=== PATIENT | male | born 1945 | race African-American/Black ===

== ENCOUNTER 2024-01-29 13:48 | Outpatient (CLI) | payer OTHER | END 2024-01-29 13:49 | disposition home or self-care (01) | LOC: CSHWCC 13:48 | PROVIDERS: ATTEND Nurse Practitioner Family | DX: L89.154 Pressure ulcer of sacral region, stage 4 (principal); E11.622 Type 2 diabetes mellitus with other skin ulcer; L98.499 Non-pressure chronic ulcer of skin of other sites with unspecified severity; C18.9 Malignant neoplasm of colon, unspecified; C61 Malignant neoplasm of prostate | CPT/HCPCS: 11042; 99213; G0463 ==

== ENCOUNTER 2024-02-07 14:37 | Outpatient (CLI) | payer OTHER | END 2024-02-07 14:38 | disposition home or self-care (01) | LOC: CSHWCC 14:37 | PROVIDERS: ATTEND Nurse Practitioner Family | DX: L89.154 Pressure ulcer of sacral region, stage 4 (principal); E11.622 Type 2 diabetes mellitus with other skin ulcer; L98.499 Non-pressure chronic ulcer of skin of other sites with unspecified severity; C18.9 Malignant neoplasm of colon, unspecified; C61 Malignant neoplasm of prostate | CPT/HCPCS: 11042; 97605 ==

== ENCOUNTER 2024-03-01 12:02 | Outpatient (CLI) | payer OTHER | END 2024-03-01 12:03 | disposition home or self-care (01) | LOC: CSHWCC 12:02 | PROVIDERS: ATTEND Nurse Practitioner Family | DX: L89.154 Pressure ulcer of sacral region, stage 4 (principal); E11.622 Type 2 diabetes mellitus with other skin ulcer; L98.499 Non-pressure chronic ulcer of skin of other sites with unspecified severity; C18.9 Malignant neoplasm of colon, unspecified; C61 Malignant neoplasm of prostate | CPT/HCPCS: 11042; 97605 ==

== ENCOUNTER 2024-03-15 13:55 | Outpatient (CLI) | payer OTHER | END 2024-03-15 13:56 | disposition home or self-care (01) | LOC: CSHWCC 13:55 | PROVIDERS: ATTEND Nurse Practitioner Family | DX: L89.154 Pressure ulcer of sacral region, stage 4 (principal); E11.622 Type 2 diabetes mellitus with other skin ulcer; L98.499 Non-pressure chronic ulcer of skin of other sites with unspecified severity; C18.9 Malignant neoplasm of colon, unspecified; C61 Malignant neoplasm of prostate | CPT/HCPCS: 11042; 99212; G0463 ==

== ENCOUNTER 2024-04-03 15:06 | Outpatient (CLI) | payer OTHER | END 2024-04-03 15:07 | disposition home or self-care (01) | LOC: CSHWCC 15:06 | PROVIDERS: ATTEND Nurse Practitioner Family | DX: L89.154 Pressure ulcer of sacral region, stage 4 (principal); E11.622 Type 2 diabetes mellitus with other skin ulcer; L98.499 Non-pressure chronic ulcer of skin of other sites with unspecified severity; C18.9 Malignant neoplasm of colon, unspecified; C61 Malignant neoplasm of prostate | CPT/HCPCS: 11042 ==

== ENCOUNTER 2024-10-16 15:15 | Outpatient (CLI) | payer OTHER | END 2024-10-16 15:16 | disposition home or self-care (01) | LOC: CSHWCC 15:15 | PROVIDERS: ATTEND Nurse Practitioner Family | DX: L89.154 Pressure ulcer of sacral region, stage 4 (principal); E11.622 Type 2 diabetes mellitus with other skin ulcer; L98.499 Non-pressure chronic ulcer of skin of other sites with unspecified severity; C18.9 Malignant neoplasm of colon, unspecified; C61 Malignant neoplasm of prostate | CPT/HCPCS: 97597; 97605 ==

== ENCOUNTER 2024-10-31 14:48 | Outpatient (CLI) | payer OTHER | END 2024-10-31 14:49 | disposition home or self-care (01) | LOC: CSHWCC 14:48 | PROVIDERS: ATTEND Nurse Practitioner Family | DX: L89.154 Pressure ulcer of sacral region, stage 4 (principal); E11.622 Type 2 diabetes mellitus with other skin ulcer; L98.499 Non-pressure chronic ulcer of skin of other sites with unspecified severity; C18.9 Malignant neoplasm of colon, unspecified; C61 Malignant neoplasm of prostate | CPT/HCPCS: 11042; 99213; G0463 ==

== ENCOUNTER 2024-11-08 15:00 | Outpatient (CLI) | payer OTHER | END 2024-11-08 15:01 | disposition home or self-care (01) | LOC: CSHWCC 15:00 | PROVIDERS: ATTEND Nurse Practitioner Family | DX: L89.154 Pressure ulcer of sacral region, stage 4 (principal); E11.622 Type 2 diabetes mellitus with other skin ulcer; L98.499 Non-pressure chronic ulcer of skin of other sites with unspecified severity; C61 Malignant neoplasm of prostate; C18.9 Malignant neoplasm of colon, unspecified ==

== ENCOUNTER 2024-11-19 14:29 | Outpatient (CLI) | payer OTHER | END 2024-11-19 14:30 | disposition home or self-care (01) | LOC: CSHWCC 14:29 | PROVIDERS: ATTEND Nurse Practitioner Family | DX: L89.154 Pressure ulcer of sacral region, stage 4 (principal); E11.622 Type 2 diabetes mellitus with other skin ulcer; L98.499 Non-pressure chronic ulcer of skin of other sites with unspecified severity; C18.9 Malignant neoplasm of colon, unspecified; C61 Malignant neoplasm of prostate | CPT/HCPCS: 11042 ==

== ENCOUNTER 2024-12-02 14:43 | Outpatient (CLI) | payer OTHER | END 2024-12-02 14:44 | disposition home or self-care (01) | LOC: CSHWCC 14:43 | PROVIDERS: ATTEND Nurse Practitioner Family | DX: L89.154 Pressure ulcer of sacral region, stage 4 (principal); E11.622 Type 2 diabetes mellitus with other skin ulcer; L98.499 Non-pressure chronic ulcer of skin of other sites with unspecified severity; C18.9 Malignant neoplasm of colon, unspecified; C61 Malignant neoplasm of prostate | CPT/HCPCS: 11042 ==

== ENCOUNTER 2024-12-30 12:59 | Outpatient (CLI) | payer OTHER | END 2024-12-30 13:00 | disposition home or self-care (01) | LOC: CSHWCC 12:59 | PROVIDERS: ATTEND Nurse Practitioner Family | DX: L89.154 Pressure ulcer of sacral region, stage 4 (principal); E11.622 Type 2 diabetes mellitus with other skin ulcer; L98.499 Non-pressure chronic ulcer of skin of other sites with unspecified severity; C18.9 Malignant neoplasm of colon, unspecified; C61 Malignant neoplasm of prostate | CPT/HCPCS: 97597 ==

== ENCOUNTER 2025-01-14 11:17 | Outpatient (CLI) | payer OTHER | END 2025-01-14 11:18 | disposition home or self-care (01) | LOC: CSHWCC 11:17 | PROVIDERS: ATTEND Nurse Practitioner Family | DX: E11.622 Type 2 diabetes mellitus with other skin ulcer (principal); L89.154 Pressure ulcer of sacral region, stage 4; C18.9 Malignant neoplasm of colon, unspecified; C61 Malignant neoplasm of prostate | CPT/HCPCS: 11042; 99213; G0463 ==

== ENCOUNTER 2025-01-28 13:59 | Outpatient (CLI) | payer OTHER | END 2025-01-28 14:00 | disposition home or self-care (01) | LOC: CSHWCC 13:59 | PROVIDERS: ATTEND Nurse Practitioner Family | DX: L89.154 Pressure ulcer of sacral region, stage 4 (principal); E11.622 Type 2 diabetes mellitus with other skin ulcer; L98.499 Non-pressure chronic ulcer of skin of other sites with unspecified severity; C18.9 Malignant neoplasm of colon, unspecified; C61 Malignant neoplasm of prostate | CPT/HCPCS: 11042; 99212; G0463 ==

== ENCOUNTER 2025-02-11 14:24 | Outpatient (CLI) | payer OTHER | END 2025-02-11 14:25 | disposition home or self-care (01) | LOC: CSHWCC 14:24 | PROVIDERS: ATTEND Nurse Practitioner Family | DX: L89.154 Pressure ulcer of sacral region, stage 4 (principal); E11.622 Type 2 diabetes mellitus with other skin ulcer; L98.499 Non-pressure chronic ulcer of skin of other sites with unspecified severity; C18.9 Malignant neoplasm of colon, unspecified; C61 Malignant neoplasm of prostate | CPT/HCPCS: 11042 ==

== ENCOUNTER 2025-02-25 14:12 | Outpatient (CLI) | payer OTHER | END 2025-02-25 14:13 | disposition home or self-care (01) | LOC: CSHWCC 14:12 | PROVIDERS: ATTEND Nurse Practitioner Family | DX: L89.154 Pressure ulcer of sacral region, stage 4 (principal); E11.622 Type 2 diabetes mellitus with other skin ulcer; L98.499 Non-pressure chronic ulcer of skin of other sites with unspecified severity; C18.9 Malignant neoplasm of colon, unspecified; C61 Malignant neoplasm of prostate | CPT/HCPCS: 97597 ==

== ENCOUNTER 2025-03-11 14:07 | Outpatient (CLI) | payer OTHER | END 2025-03-11 14:08 | disposition home or self-care (01) | LOC: CSHWCC 14:07 | PROVIDERS: ATTEND Nurse Practitioner Family | DX: L89.154 Pressure ulcer of sacral region, stage 4 (principal); E11.622 Type 2 diabetes mellitus with other skin ulcer; L98.499 Non-pressure chronic ulcer of skin of other sites with unspecified severity; C61 Malignant neoplasm of prostate; C18.9 Malignant neoplasm of colon, unspecified | CPT/HCPCS: 99212; G0463 ==